=== PATIENT | female | born 1990 | race Caucasian/White ===

== ENCOUNTER 2020-10-02 04:00 | Observation (INO) | payer OTHER, SELFPAY ==
[~2020-10-02] VITALS: Ht 162.6 cm; Wt 81.6 kg
[2020-10-02 04:05] VITALS: BP 116/76
[2020-10-02 06:49] LABS: BASOPHILS # (AUTO) 0.1 K/uL (0.00-0.22); BASOPHILS % (AUTO) 0.8 % (0.0-2.0); EOSINOPHILS % (AUTO) 0.2 % (0.0-4.0); HEMOGLOBIN 13.1 g/dL (12.0-16.0); LYMPHOCYTES # (AUTO) 2.1 K/uL (2.5-16.5); LYMPHOCYTES % (AUTO) 11.7 % (20.5-51.1); MEAN CORPUSCULAR HEMOGLOBIN 30 pg (27-31); MEAN CORPUSCULAR HGB CONC 34 g/dL (33-37); MEAN CORPUSCULAR VOLUME 88.1 fL (80-94); MONOCYTES # (AUTO) 0.6 K/uL (0.8-1.0); MONOCYTES % (AUTO) 3.3 % (1.7-9.3); NEUTROPHILS # (AUTO) 14.8 K/uL (1.8-7.7); PLATELET COUNT (AUTO) 266 K/uL (140-450); RED BLOOD CELL COUNT(AUTO) 4.43 MIL/uL (4.20-5.40); RED CELL DISTRIBUTION WIDTH 13.9 % (11.6-13.7); WHITE BLOOD COUNT (AUTO) 17.6 K/uL (4.8-10.8)
[2020-10-02] MEDS ORDERED: NACL 0.9% 1,000 ML IV ONE (07:00)
[2020-10-02 07:11] LABS: ALBUMIN 3.2 g/dL (3.4-5.0); ANION GAP 14.6 (8-16); CARBON DIOXIDE 21.4 mmol/L (21-32); CREATININE 0.7 mg/dL (0.6-1.3); TOTAL BILIRUBIN 0.5 mg/dL (0.0-1.0)
[2020-10-02] MEDS ORDERED: FERR-212 PO (08:07)
[2020-10-02] MEDS ORDERED: VITD400 PO (08:07)
[2020-10-02] MEDS ORDERED: ASCO500T95 PO (08:07)
[2020-10-02] MEDS ORDERED: ONDANSETRON 4 MG/2 ML VIAL IVP PRN (08:15)
[2020-10-02] MEDS ORDERED: MORPHINE SULFATE 2 MG/ML SYR IVP PRN (08:15)
[2020-10-02] MEDS: NACL 0.9% 1,000 ML IV SCH ×2 (08:44→16:15)
[2020-10-02 08:55] VITALS: BP 116/61
[2020-10-02 16:00] VITALS: BP 110/68
[2020-10-03] MEDS: NACL 0.9% 1,000 ML IV SCH ×2 (00:04→04:16)
[2020-10-03 04:00] VITALS: BP 115/62
[2020-10-03 06:21] LABS: BASOPHILS % (AUTO) 0.2 % (0.0-2.0); EOSINOPHILS # (AUTO) 0.2 K/uL (0-0.4); EOSINOPHILS % (AUTO) 2.3 % (0.0-4.0); HEMATOCRIT 35.4 % (36-48); HEMOGLOBIN 11.8 g/dL (12.0-16.0); LYMPHOCYTES % (AUTO) 27.6 % (20.5-51.1); MEAN CORPUSCULAR HEMOGLOBIN 30 pg (27-31); MEAN CORPUSCULAR HGB CONC 33 g/dL (33-37); MEAN CORPUSCULAR VOLUME 88.4 fL (80-94); MONOCYTES # (AUTO) 0.5 K/uL (0.8-1.0); NEUTROPHILS % (AUTO) 64.9 % (42.2-75.2); PLATELET COUNT (AUTO) 258 K/uL (140-450); WHITE BLOOD COUNT (AUTO) 10.8 K/uL (4.8-10.8)
[2020-10-03 06:28] LABS: ANION GAP 11.3 (8-16); CARBON DIOXIDE 26.6 mmol/L (21-32); CREATININE 0.6 mg/dL (0.6-1.3); POTASSIUM 3.9 mmol/L (3.5-5.1)
[2020-10-03 14:00] VITALS: BP 118/80
[2020-10-03 15:08] VITALS: BP 120/81
== END 2020-10-03 16:10 | disposition home or self-care (01) ==
LOC: MED 04:00 → MMU 08:13
PROVIDERS: ADMIT Hospitalist; ATTEND Hospitalist
DX: R10.9 Unspecified abdominal pain (principal); Z20.822 Contact with and (suspected) exposure to COVID-19; R06.02 Shortness of breath; F41.9 Anxiety disorder, unspecified; K57.90 Diverticulosis of intestine, part unspecified, without perforation or abscess without bleeding; D72.829 Elevated white blood cell count, unspecified; K56.609 Unspecified intestinal obstruction, unspecified as to partial versus complete obstruction; Z87.442 Personal history of urinary calculi
CPT/HCPCS: 36415; 74176; 80048; 80053; 81025; 83605; 83690; 85025; 87040; 87081; 87426; 96360; 96361; 99284; G0378; J7030

== ENCOUNTER 2023-07-13 13:31 | Emergency (ER) | payer OTHER ==
[~2023-07-13] VITALS: Ht 162.6 cm; Wt 87.3 kg
[~2023-07-13 13:31] MED LIST: ASCO500T95 PO; FERR-212 PO; VITD400 PO
[2023-07-13 14:04] VITALS: BP 128/76; PULSE 71; RESP 16; TEMP 98.3; O2SAT 99
[2023-07-13] MEDS ORDERED: FLUORESCEIN OPTH STRIP 1 MG OP ONE (15:25)
[2023-07-13] MEDS ORDERED: BACI-418 TP (15:35)
[2023-07-13] MEDS ORDERED: BACITRACIN OINT 500 UNITS/GM PKT TP ONE (15:35)
== END 2023-07-13 16:47 | disposition home or self-care (01) ==
LOC: MED 13:31
DX: S01.111A Laceration without foreign body of right eyelid and periocular area, initial encounter (principal); S01.81XA Laceration without foreign body of other part of head, initial encounter; Z79.899 Other long term (current) drug therapy; Z79.2 Long term (current) use of antibiotics; W54.0XXA Bitten by dog, initial encounter; Y93.89 Activity, other specified; Y92.89 Other specified places as the place of occurrence of the external cause; Y99.8 Other external cause status
CPT/HCPCS: 81025; 99283